=== PATIENT | female | born 1975 | race American Indian/Alaskan Native ===

== ENCOUNTER 2019-11-11 14:16 | Outpatient (CLI) | payer OTHER | END 2019-11-11 14:22 | disposition home or self-care (01) | LOC: LAB 14:16 | DX: J45.998 Other asthma (principal) ==

== ENCOUNTER → 2019-11-11 | Outpatient (CLI) | payer OTHER | END | disposition home or self-care (01) | LOC: RAD 13:00 | DX: J45.51 Severe persistent asthma with (acute) exacerbation (principal) ==

== ENCOUNTER 2020-06-30 10:07 | Outpatient (CLI) | payer OTHER | END 2020-06-30 10:25 | disposition home or self-care (01) | LOC: MRI 10:07 | DX: S33.5XXA Sprain of ligaments of lumbar spine, initial encounter (principal) | CPT/HCPCS: 72148 ==

== ENCOUNTER 2021-05-18 10:36 | Outpatient (CLI) | payer OTHER | END 2021-05-18 10:48 | disposition home or self-care (01) | LOC: LAB 10:36 | DX: N91.1 Secondary amenorrhea (principal) ==

== ENCOUNTER → 2021-07-10 11:44 | Outpatient (CLI) | payer OTHER | END | disposition home or self-care (01) | LOC: MRI 11:15 | DX: M25.552 Pain in left hip (principal) | CPT/HCPCS: 73721 ==

== ENCOUNTER 2023-01-19 16:37 | Emergency (ER) | payer OTHER ==
[~2023-01-19] VITALS: Ht 165.1 cm; Wt 64.4 kg
[2023-01-19] MEDS ORDERED: MOLNUPIRAVIR (200 MG PO (19:39)
== END 2023-01-19 20:01 | disposition home or self-care (01) ==
LOC: ER 16:37
DX: U07.1 COVID-19 (principal); Z88.8 Allergy status to other drugs, medicaments and biological substances

== ENCOUNTER 2023-04-06 09:59 | Emergency (ER) | payer OTHER ==
[~2023-04-06] VITALS: Ht 165.1 cm; Wt 80.7 kg
[~2023-04-06 09:59] MED LIST: MOLNUPIRAVIR (200 MG PO
[2023-04-06] MEDS ORDERED: SYMBICORT 16010.2 GM (10:29)
== END 2023-04-06 15:22 | disposition home or self-care (01) ==
LOC: ER 09:59
DX: J06.9 Acute upper respiratory infection, unspecified (principal); Z20.822 Contact with and (suspected) exposure to COVID-19

== ENCOUNTER → 2025-05-28 | Emergency (ER) | payer OTHER ==
[~2025-05-28] MED LIST changes: +SYMBICORT 16010.2 GM
== END | disposition left against medical advice (07) ==
LOC: ER 18:58
DX: Z53.21 Procedure and treatment not carried out due to patient leaving prior to being seen by health care provider (principal)